=== PATIENT | male | born 1980 | race Caucasian/White ===

== ENCOUNTER 2025-03-27 07:00 | Day surgery (SDC) | payer BC, SELFPAY ==
[2025-03-27 07:19] VITALS: BP 156/108; PULSE 83; RESP 16; TEMP 36.1; O2SAT 98; BMI 34.9
[2025-03-27] MEDS: Cephalexin 500 MG Capsule PO (07:29)
--- NOTE | 2025-03-27 07:35 | PCM.HP.STD ---
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 Patient reports that about around the time of the development of the mass, he had a trauma with an oscillating tool. He reports having x-rays without any signs of foreign body. He is not a smoker. He has a history of hypertension Current Encounter (DATE OF SURGERY H&P UPDATE): I saw and examined the patient this morning in pre-operative holding. We discussed risks and benefits of today's surgery and they would like to proceed. NO CHANGE in health history since last seen and evaluated. Ready to proceed with surgery. [facility] Medical History Emotional problems High blood pressure Acid reflux Home Medications ?Medication ?Instructions ?Recorded ?Last Taken ?Type esomeprazole magnesium 40 mg 40 mg PO QDAY 03/08/25 03/27/25 History capsule,delayed release (Nexium) lisinopril 20 mg tablet 20 mg PO BID 03/08/25 03/27/25 History venlafaxine 75 mg tablet 75 mg PO QDAY 03/08/25 03/27/25 History Allergy/AdvReac Type Severity Reaction Status Date / Time shellfish derived Allergy Severe Anaphylaxis Verified 03/27/25 07:19 Social History Smoking Status: Never smoker alcohol intake: current Vital Signs Vital Signs Vital Signs: 03/27/25 07:19 03/27/25 07:28 Temperature 97.0 F L Temperature Source Temporal Pulse Rate 83 Respiratory Rate 16 Respiratory Pattern Normal Blood Pressure 156/108 H Blood Pressure Mean 124 Blood Pressure Source Monitor Blood Pressure Position Sitting Blood Pressure Location Left Arm Pulse Ox 98 Oxygen Delivery Method Room Air Weight Weight: 230 lb Body Mass Index (BMI) 34.9 Physical Exam Narrative Right upper Extremity Inspection: Small 1 x 1 cm subcutaneous mobile mass just distal to the DIP joint in the center volar part of the index finger Palpation: Mass is mobile and nontender Motor: Able to bend and extend all MP, PIP, and DIP joints. Sensory: Intact to light touch on the radial and ulnar borders. Vascular: Finger tips are warm and well perfused with <2 second capillary refill. Assessment & Plan Assessment/Plan (1) Subcutaneous mass of finger of right hand: PLAN: Plan This is likely an epidermal inclusion cyst, however no guarantees until this is excised and sent to pathology. An epidermal inclusion cyst makes most sense as he had a trauma in this area and likely has ingrowth of traumatized skin. I talked to the patient extensively about the risks of surgery, including bleeding, infection, damage to surrounding structures (including nerves), poor scaring, pain, surgical site dehiscence and wound formation, need for wound care, need for repeat operations, failure to obtain the desired result (recurrence of the cyst). We talked about how approximately 95% of tumors of the hand are benign, but that there is a high rate of local recurrence (especially if the tumor is a giant cell tumor, upwards of 45%). The benefits and alternatives of this surgery were also discussed. All of their questions were answered, and they agreed to proceed with surgery. Right index finger subcutaneous mass excision and closure in the operating room under local anesthesia. INTERVAL H&P PLAN, DATE OF SURGERY: We will proceed with surgery today. Reiterated the above noted risks and benefits. We marked the right index finger mass.
--- NOTE | 2025-03-27 08:14 | OP.PCM_ITS ---
Operative Report (Standard) Operative Information Date of Procedure: 03/27/25 Pre-Operative Diagnosis: Right index fingertip subcutaneous mass Post-Operative Diagnosis: Same Surgery/Procedure Performed: 1) Excision of finger subcutaneous mass of right in dex finger tip, 1 x 1.2 cm (CPT: 64563) 2) Intermediate closure, right index finger tip wound, 1 cm (CPT: 57596) finished stock inspector: No Type of Anesthesia: Local (8 cc of 50-50 mixture of 1% lidocaine and 0.25% Marcaine) RN Documented Start/Stop Times: Operation Date: 03/27/25 08:50 Case Time Into Pre-Op 03/27/25 07:08 Out of Pre-Op 03/27/25 08:51 Anesthesia Start 03/27/25 08:57 Into Room 03/27/25 08:57 Procedure Start 03/27/25 09:19 Procedure End 03/27/25 09:34 Anesthesia End 03/27/25 09:36 Out of Room 03/27/25 09:36 Procedure Start Time: 09:19 Procedure Stop Time: 09:34 Select all DRAINS/GRAFTS/IMPLANTS that apply: None Estimated Blood Loss: Minimal Specimen collected: Yes Description of specimen(s) removed: Mass from right index fingertip Description of surgery: Indications: Morgan Cooley is a delightful 44-year-old male with a right index finger mass. Presents today for excision. He was counseled on the risks, benefits, and alternatives to procedure and elected to proceed. Procedure details: Patient was correctly identified in preoperative holding and the mass was marked with the patient present and he was in agreement with the site marking. He was taken back to the operating room where he was prepped and draped in sterile fashion and administered a local digital block as noted above. A turnicot was applied with care taken to remove at the end of the case. 15 blade scalpel was used to make an oblique direct incision over the mass and dissection was carried out carefully with 15 blade scalpel and tenotomy scissors around the subcutaneous mass which had a well-circumscribed capsule consistent with an epidermal inclusion cyst. Care was taken to protect the distal branch of the digital nerve. The procedure was performed under 3.5X loupe magnification. The mass was sent to pathology. The cyst measured 1 x 1.2 cm. The turnicot was removed and hemostasis obtained with bipolar electrocautery. The wound was irrigated with copious amounts of normal saline as well as Irrisept. It was closed with 1 interrupted 4-0 Vicryl deep dermal suture followed by interrupted 3-0 nylon top sutures. This was an intermediate closure of 1 cm. Xeroform Rayshawn and Coban was applied loosely. Patient tolerated the procedure well and was taken to the PACU in stable condition. Surgical Findings: Consistent with epidermal inclusion cyst Complications Complications: No Admit VTE Documentation VTE Mechan Device Prophylaxis: SCD's
--- NOTE | 2025-03-27 08:50 | LES_PTH ---
PATIENT: HARRIETT DIAZ LOC: [facility] [place] U#:[id number] AGE/SX: 44/M ROOM: RE03/27/[address]: Dr. Allen Mojica MD : 1980 BED: DIS: 03/27/2025 SPEC #: [id number] RECD: 03/27/25 11:19 STATUS: REY WILDER #: [id number] DAVION: 03/27/25 08:[address]: Allen Mojica DEPT: SURGICAL PATHOLOGY RECD BY: Riley Kauffman ENTERED: 03/27/25 11:36 SP TYPE: Lesion OTHR DR: Dr. Jatin Escalante MD Tissues: A - Skin of finger, NOS Procedures: Surgery Specimen Level IV HEADER OPERATION: Excision right index finger subcutaneous mass with closure PRE-OP DIAGNOSIS: Subcutaneous mass of right index finger TISSUE SUBMITTED: A- Right index finger subcutaneous mass MICROSCOPIC DIAGNOSIS A. Right index finger, subcutaneous mass, excision: * Epidermal inclusion cyst. MICROSCOPIC DESCRIPTION Slides are reviewed. GROSS DESCRIPTION A. Received in formalin in a container labeled with the patient's name, date of , and R index finger subcutaneous mass is a previously disrupted fragment of white-prescott, membranous soft tissue measuring 0.8 x 0.7 x 0.6 cm. No skin is identified. The fragment is possibly consistent with a previously disrupted cystic structure. Sectioning reveals white-prescott, smooth, and unremarkable surfaces with a scant amount of white-prescott friable material. Submitted entirely in A1. [facility] 03-27-2025 CPT:24706
[2025-03-27 08:59] VITALS: BP 126/95; BP 128/98; BP 129/94; BP 130/93; BP 130/95; O2SAT 96; O2SAT 97
[2025-03-27] MEDS: Bupivacaine 0.25% 30 ML Vial (09:13)
[2025-03-27] MEDS: Lidocaine 1% (20 ml mdv) 20 ML Vial (09:13)
[2025-03-27 10:00] VITALS: BP 139/105; BP 156/108; PULSE 67; RESP 16; TEMP 36.6; O2SAT 96
== END 2025-03-27 10:01 | disposition home or self-care (01) ==
LOC: SDC 07:03 → AC 07:05
PROVIDERS: PCP Family Medicine; Referring Provider Surgery Plastic and Reconstructive Surgery; Visit Provider Surgery Plastic and Reconstructive Surgery
PROC: (CPT 26055; principal; 2025-03-27 08:40)
DX: L72.0 Epidermal cyst (principal); I10 Essential (primary) hypertension; K21.9 Gastro-esophageal reflux disease without esophagitis; Z79.899 Other long term (current) drug therapy
CPT/HCPCS: 26115; 88305